=== PATIENT | male | born 1945 | race Caucasian/White ===

== ENCOUNTER 2019-07-27 14:45 | Inpatient (IN) | payer MEDICARE, BC ==
[2019-07-27] MEDS ORDERED: Sodium Chloride 0.9% 1,000 ML IV ONE (14:54)
[2019-07-27] MEDS: Sodium Chloride 0.9% 10 ML Syringe FLUSH PRN ×2 (15:00→20:38)
--- NOTE | 2019-07-27 15:01 | EDM.PDOC ---
ED HPI GENERAL MEDICAL PROBLEM - General Chief Complaint: General Stated Complaint: GENERALIZED WEAKNESS Time Seen by Provider: 07/27/19 14:45 Source of Information: Reports: Patient, EMS - History of Present Illness INITIAL COMMENTS - FREE TEXT/NARRATIVE: 74 YO WM presents to ER with complaints of progressive weakness over the last month. Pt woke this am and attempted to get his phone and fell due to weakness. Pt denies slurred speech, confusion, headache or recent head injury. Pt denies chest pain, shortness of breath or recent illnesses. Pt states he hasn't seen a doctor in over 20 years. Pt states his mouth feels very dry. Pt denies alcohol use/abuse, no recreational drug use, not taking any prescription medications and states he likes to smoke cigars daily. Pt is alert and oriented x 4, GCS- 15. No pronator drift, no facial droop and no slurred speech on initial exam. Pt able to move all extremities without difficulty and purposely. Onset: Today, Gradual Duration: Getting Worse Location: Reports: Generalized Severity: Moderate Improves with: Reports: None Worsens with: Reports: None Associated Symptoms: Reports: Loss of Appetite, Malaise, Weakness. Denies: Confusion, Chest Pain, Cough, cough w sputum, Diaphoresis, Nausea/Vomiting, Rash , Seizure, Shortness of Breath, Syncope - Related Data Allergies Allergy/AdvReac Type Severity Reaction Status Date / Time No Known Drug Allergies Allergy Other Verified 07/27/19 15:06 Home Meds: Home Meds Aspirin [Halfprin] 81 mg PO DAILY 07/27/19 [History] ED ROS GENERAL - Review of Systems Review Of Systems: See Below Constitutional: Reports: No Symptoms, Malaise, Weakness, Fatigue HEENT: Reports: No Symptoms Respiratory: Reports: No Symptoms Cardiovascular: Reports: No Symptoms Endocrine: Reports: No Symptoms GI/Abdominal: Reports: No Symptoms : Reports: No Symptoms Musculoskeletal: Reports: No Symptoms Skin: Reports: No Symptoms Neurological: Reports: No Symptoms, Difficulty Walking, Weakness. Denies: Confusion, Dizziness, Headache, Trouble Speaking, Change in Speech Psychiatric: Reports: No Symptoms Hematologic/Lymphatic: Reports: No Symptoms Immunologic: Reports: No Symptoms ED EXAM, GENERAL - Physical Exam Exam: See Below Exam Limited By: No Limitations General Appearance: Alert, WD/WN, No Apparent Distress Eye Exam: Bilateral Eye: EOMI, PERRL Throat/Mouth: Normal Inspection, Normal Lips, Normal Teeth, Normal Gums, Normal Oropharynx, Normal Voice, No Airway Compromise Head: Atraumatic, Normocephalic Neck: Normal Inspection, Supple, Non-Tender, Full Range of Motion Respiratory/Chest: No Respiratory Distress, Lungs Clear, Normal Breath Sounds, No Accessory Muscle Use, Chest Non-Tender Cardiovascular: Normal Peripheral Pulses, Regular Rate, Rhythm, No Edema, No Gallop, No JVD, No Murmur, No Rub GI/Abdominal: Normal Bowel Sounds, Soft, Non-Tender, No Organomegaly, No Distention, No Abnormal Bruit, No Mass Back Exam: Normal Inspection, Full Range of Motion, NT Extremities: Normal Inspection, Normal Range of Motion, Non-Tender, Normal Capillary Refill, No Pedal Edema Neurological: Alert, Oriented, CN II-XII Intact, Normal Cognition, Normal Gait, Normal Reflexes, No Motor/Sensory Deficits Psychiatric: Normal Affect, Normal Mood Skin Exam: Warm, Dry, Intact, Normal Color, No Rash Lymphatic: No Adenopathy EKG INTERPRETATION EKG Date: 07/27/19 Time: 14:58 Rhythm: NSR Rate (Beats/Min): 64 [place]: Normal P-Wave: Present QRS: Normal ST-T: Normal QT: Normal Comparison: NA - No Prior EKG Course - Vital Signs Last Recorded V/S: Last Vital Signs Temp 36.7 C 07/27/19 16:21 Pulse 71 07/27/19 16:21 Resp 16 07/27/19 16:21 BP 225/69 H 07/27/19 16:21 Pulse Ox 95 07/27/19 16:21 - Orders/Labs/Meds Orders: Active Orders 24 hr Category Date Time Status Cardiac Monitoring [RC] . DIRECTED Care 07/27/19 14:55 Active EKG Documentation Completion [RC] ASDIRECTED Care 07/27/19 14:55 Active Peripheral IV Care [RC] . DIRECTED Care 07/27/19 14:55 Active UA W/MICROSCOPIC [URIN] Stat Lab 07/27/19 14:54 Ordered Sodium Chloride 0.9% [Saline Flush] Med 07/27/19 14:54 Active 10 ml FLUSH Q8HR PRN Peripheral IV Insertion Adult [OM.PC] Routine Oth 07/27/19 14:54 Ordered EKG 12 Lead [EK] Routine Ther 07/27/19 14:54 Ordered Medication Orders Sodium Chloride (Saline Flush) 10 ml FLUSH Q8HR PRN PRN Reason: keep vein open Last Admin: 07/27/19 15:00 Dose: 10 ml Labs: Laboratory Tests 07/27/19 07/27/19 Range/Units 14:55 14:55 WBC 9.10 (5.00-10.00) 10^3/uL RBC 4.48 L (4.50-6.00) 10^6/uL Hgb 15.9 (13.0-17.0) g/dL Hct 44.1 (40.0-52.0) % MCV 98.4 H (82.0-92.0) fL MCH 35.5 H (27.0-31.0) pg MCHC 36.1 H (32.0-36.0) g/dL RDW 12.6 (11.5-14.5) % Plt Count 189 (150-400) 10^3/uL MPV 9.6 (7.4-10.4) fL Immature Gran % (Auto) 0.2 (0.0-5.0) % Neut % (Auto) 85.1 H (50.0-70.0) % Lymph % (Auto) 8.5 L (20.0-40.0) % [place] % (Auto) 5.8 (2.0-8.0) % Eos % (Auto) 0.1 L (1.0-3.0) % Baso % (Auto) 0.3 (0.0-1.0) % Immature Gran # (Auto) 0.02 (0.00-0.50) 10^3/uL Neut # (Auto) 7.74 H (2.50-7.00) 10^3/uL Lymph # (Auto) 0.77 L (1.00-4.00) 10^3/uL [place] # (Auto) 0.53 (0.10-0.80) 10^3/uL Eos # (Auto) 0.01 L (0.10-0.30) 10^3/uL Baso # (Auto) 0.03 (0.00-0.10) 10^3/uL Sodium 139 (136-145) mmol/L Potassium 3.9 (3.3-5.3) mmol/L Chloride 105 (98-115) mmol/L Carbon Dioxide 21.9 (21.0-32.0) mmol/L Anion Gap 16.0 H (5-15) mmol/L BUN 19 (6-25) mg/dL Creatinine 1.47 H (0.51-1.17) mg/dL Est Cr Clr Drug Dosing 34.29 mL/min Estimated GFR (MDRD) 47 mL/min Glucose 125 H (75 - 99) mg/dL Calcium 9.1 (8.7-10.3) mg/dL Total Bilirubin 0.7 (0.2-1.0) mg/dL AST 26 (15-37) U/L ALT 21 (12-78) U/L Alkaline Phosphatase 86 (46-116) IU/L Creatine Kinase 375 H* (26-276) U/L CK-MB (CK-2) 4.80 H* (0.00-4.30) ng/mL Troponin I 0.08 H* (0.00-0.070) ng/mL Total Protein 7.3 (6.4-8.2) g/dL Albumin 3.46 (3.00-4.80) g/dL Meds: Medications Generic Name Dose Route Start Last Admin Trade Name Freq PRN Reason Stop Dose Admin Sodium Chloride 10 ml 07/27/19 14:54 07/27/19 15:00 Saline Flush FLUSH 10 ml Q8HR PRN Administration keep vein open Discontinued Medications Generic Name Dose Route Start Last Admin Trade Name Freq PRN Reason Stop Dose Admin Aspirin 324 mg 07/27/19 15:59 07/27/19 16:06 Aspirin PO 07/27/19 16:00 324 mg ONETIME ONE Administration Sodium Chloride 1,000 mls @ 999 mls/hr 07/27/19 14:54 07/27/19 15:00 Normal Saline IV 07/27/19 15:54 999 mls/hr .BOLUS ONE Administration Nitroglycerin 1 gm 07/27/19 15:59 07/27/19 16:07 Nitro-Bid 2% TOP 07/27/19 16:00 1 gm ONETIME ONE Administration - Radiology Interpretation Free Text/Narrative:: CT head- NAD CXR- NAD Departure - Departure Time of Disposition: 16:27 Disposition: Refer to Observation Condition: Fair Clinical Impression: Elevated troponin I level, Weakness, Dehydration - Discharge Information Referrals: PCP,Not In Area [Primary Care Provider] - Forms: ED Department Discharge - My Orders Last 24 Hours: My Active Orders 07/27/19 14:54 UA W/MICROSCOPIC [URIN] Stat Sodium Chloride 0.9% [Saline Flush] 10 ml FLUSH Q8HR PRN Peripheral IV Insertion Adult [OM.PC] Routine EKG 12 Lead [EK] Routine 07/27/19 14:55 Cardiac Monitoring [RC] . DIRECTED EKG Documentation Completion [RC] ASDIRECTED Peripheral IV Care [RC] . DIRECTED - Assessment/Plan Last 24 Hours: My Active Orders 07/27/19 14:54 UA W/MICROSCOPIC [URIN] Stat Sodium Chloride 0.9% [Saline Flush] 10 ml FLUSH Q8HR PRN Peripheral IV Insertion Adult [OM.PC] Routine EKG 12 Lead [EK] Routine 07/27/19 14:55 Cardiac Monitoring [RC] . DIRECTED EKG Documentation Completion [RC] ASDIRECTED Peripheral IV Care [RC] . DIRECTED Assessment:: 1. progressive weakness 2. dehydration 3. elevated trop I Plan: 1. admit to medicine- [facility] 2. serial trop I 3. IVF hydration 4. supportive care
--- NOTE | 2019-07-27 15:36 | CR ---
[id number] RAD/RAD Chest PA or AP 1V EXAM: FRONTAL CHEST INDICATION: Weakness. COMPARISON: None. DISCUSSION: Linear opacities in both lung bases likely represent subsegmental atelectasis or scarring, but could obscure other underlying pathology. No definite infiltrates. Borderline heart size without evidence of edema. IMPRESSION: 1. No acute findings. Mike Crawford MD 07/27/19 4430 Thank you for allowing us to participate in the care of your patient.
--- NOTE | 2019-07-27 15:40 | CT ---
[id number] CT/CT Head Stroke Protocol EXAM: NONCONTRAST HEAD CT INDICATION: Weakness and stroke protocol. COMPARISON: None. DISCUSSION: 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 and possible right midbrain lacunar infarcts. There is a prominent perivascular space in the lower right basal ganglia. Mild to moderate chronic small vessel ischemic changes. No hydrocephalus. No acute hemorrhage, midline shift or apparent territorial infarct. The orbits and paranasal sinuses are unremarkable. IMPRESSION: 1. No acute findings. Mike Crawford MD 07/27/19 4739 Thank you for allowing us to participate in the care of your patient.
[2019-07-27] MEDS ORDERED: Aspirin 81 MG Tab.Chew PO ONE (15:59)
[2019-07-27] MEDS ORDERED: Nitroglycerin 2% Oint 1 GM UD Packet TOP ONE (15:59)
[2019-07-27] MEDS ORDERED: Dextrose 5%-0.45% NaCl 1,000 ML IV SCH (18:15)
[2019-07-27] MEDS ORDERED: Labetalol 100 MG/20 ML MDV IVPUSH ONE (18:37)
[2019-07-27] MEDS ORDERED: Labetalol 100 MG/20 ML MDV IVPUSH PRN (19:12)
[2019-07-27] MEDS: Sodium Chloride 0.9% 1,000 ML IV SCH (19:22)
--- NOTE | 2019-07-27 20:57 | PCM.HP.2 ---
H&P History of Present Illness - General Date of Service: 07/27/19 Admit Problem/Dx: Admission Diagnosis/Problem Admission Diagnosis/Problem Weakness Source of Information: Patient, Family, Provider History Limitations: Reports: No Limitations - Related Data Allergies/Adverse Reactions: Allergies Allergy/AdvReac Type Severity Reaction Status Date / Time No Known Drug Allergies Allergy Other Verified 07/27/19 15:06 Home Medications: Home Meds Aspirin [Halfprin] 81 mg PO DAILY 07/27/19 [History] Past Medical History - Past Health History Medical/Surgical History: Denies Medical/Surgical History Social & Family History - Family History Cardiac: Reports: None Neurological: Denies: CVA, Parkinson's Oncologic: Reports: Breast (mother) - Tobacco Use Smoking Status *Q: Current Every Day Smoker Years of Tobacco use: 5 Packs/Tins Daily: 1 - Caffeine Use Caffeine Use: Reports: Coffee - Recreational Drug Use Recreational Drug Use: No H&P Review of Systems - Review of Systems: Review Of Systems: See Below General: Reports: Weakness, Fatigue, Decreased Appetite. Denies: Fever, Chills HEENT: Reports: Other (trouble swallowing liquid and food in the last few days) . Denies: Headaches, Sinus Congestion, Sore Throat, Vertigo, Visual Changes Pulmonary: Denies: Shortness of Breath, Cough Cardiovascular: Reports: Lightheadedness. Denies: Chest Pain, Edema, Syncope Gastrointestinal: Reports: Constipation, Decreased Appetite, Other (reports he had an umbilical hernia, but feels that resolved; has had chronic protrusion of abdomen lately). Denies: Abdominal Pain, Diarrhea, Nausea, Vomiting Genitourinary: Reports: No Symptoms Musculoskeletal: Reports: No Symptoms Skin: Reports: No Symptoms Psychiatric: Denies: Confusion Neurological: Reports: Dizziness, Numbness (of left side of mouth in past couple days, but has resolved), Trouble Speaking (words are mumbled), Difficulty Walking (swaying to the left), Weakness, Change in Speech, Gait Disturbance. Denies: Confusion, Headache, Seizure, Syncope Exam - Exam Exam: See Below - Vital Signs Vital Signs: Last Vital Signs Temp 98.8 F 07/27/19 18:35 Pulse 59 L 07/27/19 20:38 Resp 16 07/27/19 18:35 BP 165/69 H 07/27/19 20:38 Pulse Ox 94 L 07/27/19 18:35 Weight: 120 lb 6.4 oz - Exam Quality Assessment: DVT Prophylaxis (Score 3). No: Supplemental Oxygen General: Alert, Oriented (x4), Cooperative, Other (No acute distress) HEENT: Conjunctiva Clear, EOMI, Hearing Intact, Posterior Pharynx Clear, PERRLA. No: Mucosa Moist & [place] (pink and dry), TMs Clear (unable to fully visualize due to cerumen) Lungs: Clear to Auscultation, Normal Respiratory Effort Cardiovascular: Regular Rate, Regular Rhythm, Normal S1, Normal S2 GI/Abdominal Exam: Non-Tender, Distended (moderate), Abnormal Bowel Sounds ( hypoactive bowel sounds x 4), Other (rounded abdomen with moderate sized protrusion/mass midline) Extremities: No Pedal Edema Skin: Warm, Dry, Intact Neurological: Cranial Nerves Intact, Strength Equal Bilateral (5/5 to BUE and BLE), Sensation Intact, Other (no pronator drift; leans towards left with upper body). No: Normal Speech (mumbled, but still understandable) Neuro Extensive - Mental Status: Alert, Oriented x3, Normal Mood/Affect, Normal Cognition, Memory Intact Neuro Extensive - Motor, Sensory, Reflexes: CN II-XII Intact. No: Tongue Deviation (L), Tongue Deviation (R), Expressive Aphasia, Facial palsy (L), Facial Palsy (R), Hemeplagia (R), Hemeplagia (L), Pronator Drift (R), Pronator Drift (L) Psychiatric: Alert, Normal Affect, Normal Mood - Patient Data Lab Results Last 24 hrs: Laboratory Results - last 24 hr 07/27/19 07/27/19 07/27/19 Range/Units 14:55 14:55 14:55 WBC 9.10 (5.00-10.00) 10^3/uL RBC 4.48 L (4.50-6.00) 10^6/uL Hgb 15.9 (13.0-17.0) g/dL Hct 44.1 (40.0-52.0) % MCV 98.4 H (82.0-92.0) fL MCH 35.5 H (27.0-31.0) pg MCHC 36.1 H (32.0-36.0) g/dL RDW 12.6 (11.5-14.5) % Plt Count 189 (150-400) 10^3/uL MPV 9.6 (7.4-10.4) fL Immature Gran % (Auto) 0.2 (0.0-5.0) % Neut % (Auto) 85.1 H (50.0-70.0) % Lymph % (Auto) 8.5 L (20.0-40.0) % [place] % (Auto) 5.8 (2.0-8.0) % Eos % (Auto) 0.1 L (1.0-3.0) % Baso % (Auto) 0.3 (0.0-1.0) % Immature Gran # (Auto) 0.02 (0.00-0.50) 10^3/uL Neut # (Auto) 7.74 H (2.50-7.00) 10^3/uL Lymph # (Auto) 0.77 L (1.00-4.00) 10^3/uL [place] # (Auto) 0.53 (0.10-0.80) 10^3/uL Eos # (Auto) 0.01 L (0.10-0.30) 10^3/uL Baso # (Auto) 0.03 (0.00-0.10) 10^3/uL ESR 4 (0-15) mm/hr Sodium 139 (136-145) mmol/L Potassium 3.9 (3.3-5.3) mmol/L Chloride 105 (98-115) mmol/L Carbon Dioxide 21.9 (21.0-32.0) mmol/L Anion Gap 16.0 H (5-15) mmol/L BUN 19 (6-25) mg/dL Creatinine 1.47 H (0.51-1.17) mg/dL Est Cr Clr Drug Dosing 34.29 mL/min Estimated GFR (MDRD) 47 mL/min Glucose 125 H (75 - 99) mg/dL Calcium 9.1 (8.7-10.3) mg/dL Total Bilirubin 0.7 (0.2-1.0) mg/dL AST 26 (15-37) U/L ALT 21 (12-78) U/L Alkaline Phosphatase 86 (46-116) IU/L Creatine Kinase 375 H* (26-276) U/L CK-MB (CK-2) 4.80 H* (0.00-4.30) ng/mL Troponin I 0.08 H* (0.00-0.070) ng/mL C-Reactive Protein (0.0-0.9) mg/dL Total Protein 7.3 (6.4-8.2) g/dL Albumin 3.46 (3.00-4.80) g/dL 07/27/19 Range/Units 14:55 WBC (5.00-10.00) 10^3/uL RBC (4.50-6.00) 10^6/uL Hgb (13.0-17.0) g/dL Hct (40.0-52.0) % MCV (82.0-92.0) fL MCH (27.0-31.0) pg MCHC (32.0-36.0) g/dL RDW (11.5-14.5) % Plt Count (150-400) 10^3/uL MPV (7.4-10.4) fL Immature Gran % (Auto) (0.0-5.0) % Neut % (Auto) (50.0-70.0) % Lymph % (Auto) (20.0-40.0) % [place] % (Auto) (2.0-8.0) % Eos % (Auto) (1.0-3.0) % Baso % (Auto) (0.0-1.0) % Immature Gran # (Auto) (0.00-0.50) 10^3/uL Neut # (Auto) (2.50-7.00) 10^3/uL Lymph # (Auto) (1.00-4.00) 10^3/uL [place] # (Auto) (0.10-0.80) 10^3/uL Eos # (Auto) (0.10-0.30) 10^3/uL Baso # (Auto) (0.00-0.10) 10^3/uL ESR (0-15) mm/hr Sodium (136-145) mmol/L Potassium (3.3-5.3) mmol/L Chloride (98-115) mmol/L Carbon Dioxide (21.0-32.0) mmol/L Anion Gap (5-15) mmol/L BUN (6-25) mg/dL Creatinine (0.51-1.17) mg/dL Est Cr Clr Drug Dosing mL/min Estimated GFR (MDRD) mL/min Glucose (75 - 99) mg/dL Calcium (8.7-10.3) mg/dL Total Bilirubin (0.2-1.0) mg/dL AST (15-37) U/L ALT (12-78) U/L Alkaline Phosphatase (46-116) IU/L Creatine Kinase (26-276) U/L CK-MB (CK-2) (0.00-4.30) ng/mL Troponin I (0.00-0.070) ng/mL C-Reactive Protein 0.4 (0.0-0.9) mg/dL Total Protein (6.4-8.2) g/dL Albumin (3.00-4.80) g/dL Result Diagrams: 07/27/19 14:55 07/27/19 14:55 EKG INTERPRETATION EKG Date: 07/27/19 Time: 14:58 Rhythm: NSR Rate (Beats/Min): 64 [place]: Normal P-Wave: Present QRS: Normal ST-T: Depressed (in lateral leads) QT: Normal Comparison: NA - No Prior EKG Problem List Initiated/Reviewed/Updated: Yes Orders Last 24hrs: Active Orders 24 hr Category Date Time Status Patient Status [ADT] Routine ADT 07/27/19 18:02 Active Cardiac Monitoring [RC] 0300,0700,1100,1500,1900,2300 Care 07/27/19 14:55 Active Communication Order [RC] 0900,2100,0300 Care 07/27/19 19:37 Active Height and Weight [RC] DAILY Care 07/27/19 18:02 Active Intake and Output [RC] QSHIFT Care 07/27/19 18:03 Active Neuro Check [RC] 1900,2100,2300,0100,0300,0500,0700, Care 07/27/19 18:13 Active 0900,1100 Nursing Bedside Swallow Screen [RC] ASDIRECTED Care 07/27/19 17:09 Active Oxygen Therapy [RC] PRN Care 07/27/19 18:02 Active Peripheral IV Care [RC] 0900,2100 Care 07/27/19 14:55 Active Up With Assistance [RC] ASDIRECTED Care 07/27/19 18:02 Active VTE/DVT Education [RC] PER UNIT ROUTINE Care 07/27/19 18:02 Active Vital Signs [RC] 0300,0700,1100,1500,1900,2300 Care 07/27/19 18:02 Active Consult to Physical Therapy [PT Evaluation and Cons 07/27/19 18:48 Active Treatment] [CONS] Routine Consult to Speech Language Pathology [BLOCKING MACHINE OPERATOR Evaluation Cons 07/27/19 18:08 Active and Treatment] [CONS] Routine NPO [Nothing Per Oral Diet] [DIET] Diet 07/27/19 Dinner Active BASIC METABOLIC PANEL,BMP [CHEM] AM Lab 07/28/19 05:11 Ordered CBC WITH AUTO DIFF [HEME] AM Lab 07/28/19 05:11 Ordered TROPONIN I [CHEM] AM Lab 07/28/19 05:11 Ordered TROPONIN I [CHEM] Timed Lab 07/27/19 19:55 Received UA W/MICROSCOPIC [URIN] Stat Lab 07/27/19 14:54 Ordered Aspirin [Ecotrin] Med 07/28/19 09:00 Active 325 mg PO DAILY Labetalol [Normodyne] Med 07/27/19 20:49 Ordered 10 mg IVPUSH ASDIRECTED PRN Sodium Chloride 0.9% [Normal Saline] 1,000 ml Med 07/27/19 18:45 Active IV ASDIRECTED Sodium Chloride 0.9% [Saline Flush] Med 07/27/19 14:54 Active 10 ml FLUSH Q8HR PRN Peripheral IV Insertion Adult [OM.PC] Routine Oth 07/27/19 14:54 Ordered Resuscitation Status Routine Resus Stat 07/27/19 18:02 Ordered EKG 12 Lead [EK] Routine Ther 07/27/19 14:54 Stop Req Medication Orders Aspirin (Ecotrin) 325 mg PO DAILY JONATHAN Sodium Chloride (Normal Saline) 1,000 mls @ 125 mls/hr IV ASDIRECTED JONATHAN Last Admin: 07/27/19 19:22 Dose: 125 mls/hr Sodium Chloride (Saline Flush) 10 ml FLUSH Q8HR PRN PRN Reason: keep vein open Last Admin: 07/27/19 20:38 Dose: 10 ml Admin: 07/27/19 15:00 Dose: 10 ml Assessment/Plan Comment:: HPI: This is a 74 yo male who presented to the ED due to progressive weakness over the last month. Patient reports he has been off balance and fell today while trying to reach his phone. Patient's and daughter report that he has had trouble swallowing liquids and food the past few days along with leaning towards the left when he is trying to walk. They have also noticed that his speech is mumbled, but not slurred. Patient has not seen a medical provider in over 20 years. He takes a baby aspirin daily. No alcohol/drug use. Is a cigar smoker at 5 per day. Pertinent ED work-up: WBC 9.1 with left shift Hgb 15.9 with elevated MCV & MCH with normal RDW Creatinine 1.47. Troponin 0.08 CK-MB 4.80 CK 375 CXR-no acute findings CT head-impression revealed no acute findings EKG-NSR with T wave inversion in lateral leads Primary Assessment/Plan: 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 & possible right midbrain lacunar infarcts. Neuro exam not revealing any acute deficits, however does have leaning to the left, dysphagia, and mumbled speech. Upon further review of ED work-up, narrative of CT head revealed this diagnosis which is fitting with clinical picture. Neuro checks every 2 hours x 8 hours, then every 4 hours. Was given full strength ASA in ER for NSTEMI and will continue this once speech eval occurs. Failed nurse led beside waldemar wooten and is now NPO. Speech therapist to come tomorrow morning. PT evaluation. He will need MRI brain on when available. Hypertensive urgency. Upon arrival to the floor, he was given IV labetalol 20 mg IV x 1 with a PRN order for labetalol 10 mg IV q10 min for BP 165/110 or greater. Will continue this and determine oral regimen in the AM. NSTEMI, likely type 2. Repeat troponin 0.09. Continue telemetry. Serial troponins. DC nitropaste. Clinical dehydration and now NPO d/t dysphagia. Continue IVF of NS at 125 mL/ hr. Progressive weakness related to subacute right CVA. Secondary Assessment/Plan: Mass of abdomen. Obtain CT abd/pelvis in AM for further evaluation. Cigar smoker. DVT prophylaxis. Hold off on lovenox until neuro checks have been stable. Overall plan: Continue IVFs and IV labetalol. NPO. CT abd/pelvis in the AM. Hold ASA until after speech eval. Speech and PT eval in AM. Discussed current state with patient and his family. Patient elects to be a full code. Discussed with them that if he would show any signs of an acute stroke he would be transferred to the stroke center in [place]. Patient agrees. - Mortality Measure Prognosis:: Poor
[2019-07-27] MEDS: Labetalol 100 MG/20 ML MDV IVPUSH PRN (23:10)
[2019-07-28] MEDS: Labetalol 100 MG/20 ML MDV IVPUSH PRN ×7 (00:11→09:22)
[2019-07-28] MEDS: Sodium Chloride 0.9% 1,000 ML IV SCH ×2 (03:29→12:38)
[2019-07-28] MEDS ORDERED: Iopamidol 755 Mg/ML 100 ML Bottle IV ONE (08:07)
[2019-07-28 08:11] LABS: ANION GAP 20.6 mmol/L (5-15)
[2019-07-28] MEDS ORDERED: Sodium Chloride 0.9% 50 ML IV SCH (08:15)
[2019-07-28] MEDS ORDERED: Aspirin 325 MG Tab.EC PO SCH (09:00)
[2019-07-28] MEDS ORDERED: Aspirin 81 MG Tab.EC PO SCH (09:00)
--- NOTE | 2019-07-28 09:23 | CT ---
[id number] CT/CT Abdomen Pelvis W IV EXAM: ABDOMEN AND PELVIS CT WITH CONTRAST INDICATION: Massive abdomen. COMPARISON: None. DISCUSSION: There is marked distention of the urinary bladder with severe associated bilateral urinary collecting system dilation. In the inferior bladder there is an exophytic 35mm enhancing mass which could represent a urothelial or prostate malignancy. Cystoscopy is suggested for further evaluation. There are few posterior inferior bladder wall diverticula. Small bilateral pleural effusions. Bibasilar atelectasis. Mild cardiomegaly. Atherosclerotic plaque is seen throughout the aorta and its major branches. 4.8 cm infrarenal abdominal aortic aneurysm. The liver, gallbladder, spleen, pancreas, adrenal glands, small bowel and large bowel are normal in appearance. No adenopathy, free air or significant free fluid is identified. Degenerative changes in the spine. Grade 1 L3-L4 spondylolisthesis. IMPRESSION: 1. Marked distention of the urinary bladder with associated severe bilateral hydroureteronephrosis. 2. 35 mm exophytic mass in the inferior bladder that could be either a urothelial or prostate malignancy. 3. Small bilateral pleural effusions. 4. 4.8 cm infrarenal abdominal aortic aneurysm. Mike Crawford MD 07/28/19 0921 Thank you for allowing us to participate in the care of your patient.
[2019-07-28] MEDS: hydrALAZINE 20 MG/ML SDV IVPUSH PRN ×2 (10:01→11:08)
[2019-07-28] MEDS ORDERED: hydrALAZINE 20 MG/ML SDV IVPUSH PRN (11:43)
[2019-07-28] MEDS ORDERED: Lidocaine 2% 100 MG/5 ML Syringe IVPUSH PRN (14:10)
[2019-07-28] MEDS ORDERED: EPINEPHrine 1:10,000 1 MG/10 ML Syringe IVPUSH PRN (14:10)
[2019-07-28] MEDS ORDERED: Atropine 0.1 MG/ML 10 ML Syringe IVPUSH PRN (14:10)
[2019-07-28] MEDS: Nitroglycerin 0.4 MG Tab.SL SL PRN ×2 (14:13→15:01)
[2019-07-28] MEDS ORDERED: Morphine 2 MG/ML Syringe IVPUSH PRN (15:06)
[2019-07-28] MEDS ORDERED: Nitroprusside 50 MG in Dextrose 5% in Water 248 ML IV SCH ×2 (15:45)
--- NOTE | 2019-07-28 16:56 | PCM.DCSUM1 ---
Discharge Summary - Discharge Data Discharge Date: 07/28/19 Discharge Disposition: DC/Tfer to Acute Hospital 02 Condition: Critical - Referral to Home Health Primary Care Physician: Patito Barone MD - Patient Summary/Data Consults: Consultations 07/27/19 18:08 Consult to Speech Language Pathology [DIRECTOR OF RETAIL MERCHANDISING Evaluation and Treatment] [CONS] Routine 07/27/19 18:48 Consult to Physical Therapy [PT Evaluation and Treatment] [CONS] Routine 07/28/19 08:14 Consult to Case Management/Operator Receptionist [CONS] Routine - Discharge Plan Home Medications: Home Meds RX: Aspirin [Halfprin] 81 mg PO DAILY 07/27/19 [History] Forms: ED Department Discharge Referrals: PCP,Not In Area [Ordering Only Provider] - - Discharge Summary/Plan Comment DC Time >30 min.: Yes Discharge Summary/Plan Comment: Date of admission: 07/27/19 Date of discharge: 07/28/19 Admitting diagnosis: Primary: 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 & possible right midbrain lacunar infarcts; Hypertensive urgency; NSTEMI, likely type 2; Clinical dehydration, Progressive weakness related to subacute stroke, Dysphagia Secondary: Mass of abdomen, Cigar smoker Final diagnosis: Primary: NSTEMI, Marked urinary bladder distention with severe bilateral hydroureteronephrosis-post obstructive; 35 mm exophytic mass in inferior bladder ; 4.6 cm infrarenal abdominal aortic aneurysm; 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 & possible right midbrain lacunar infarcts; Hypertensive urgency; Clinical dehydration, Progressive weakness related to subacute stroke, Dysphagia. Secondary: Cigar smoker Procedures performed: None Brief History: This is a 74 yo male who presented to the ED due to progressive weakness over the last month. Patient reports he has been off balance and fell yesterday while trying to reach his phone. Patient's and daughter report that he has had trouble swallowing liquids and food the past few days along with leaning towards the left when he is trying to walk. They have also noticed that his speech is mumbled, but not slurred. Patient has not seen a medical provider in over 20 years. He takes a baby aspirin daily. No alcohol/drug use. Is a cigar smoker at 5 per day. Pertinent ED work-up: WBC 9.1 with left shift Hgb 15.9 with elevated MCV & MCH with normal RDW Creatinine 1.47. Troponin 0.08 CK-MB 4.80 CK 375 CXR-no acute findings CT head-impression revealed no acute findings EKG-NSR with T wave inversion in lateral leads Hospital Course: The patient's hospital course was complicated by a NSTEMI necessitating transfer to acute care hospital. After accepting patient to medical-surgical floor last evening, it was noted that in the narrative of the CT head report there was a subacute to chronic right thalamic & possible right midbrain lacunar infarcts. This was fitting with patient's mumbled speech, dysphagia, and leaning to the left. Neuro exam revealed no acute deficits and he was monitored throughout his stay without acute changes. He was also noted to be very hypertensive upon admission for which he required several doses of IV labetolol and IV hydralazine to achieve a SBP of less than 160. Patient appeared clinically dehydrated on admission so was given IVFs. He failed his nurse led bedside swallow study, so was kept NPO. Speech therapy in to evaluate him on day of transfer for which it was recommended he have pudding thick liquids and a video swallow be obtained. PT was consulted for evaluation. No OT evaluation available. Patient noted a mass to his abdomen that had been present for some time. CT abd/pelvis was obtained which noted "Marked distention of the urinary bladder with associated severe bilateral hydroureteronephrosis. 35 mm exophytic mass in the inferior bladder that could be either a urothelial or prostate malignancy. Small bilateral pleural effusions. 4.8 cm infrarenal abdominal aortic aneurysm." Patient had farris catheter placed. Patient developed chest pain around 1400 today (07/28/19). Troponins had trended down to normal this morning with reading of 0.05, 0.07. Repeat level obtained at symptom onset which was 0.08 with a BNP of 1900. IVFs were stopped. EKG obtained which noted NSR at 69 bpm with marked t wave inversion in lateral leads V4-6 when compared to initial EKG. He was placed on oxygen. He was given 2 sublingual nitroglycerin without improvement in pain. He was given morphine 2 mg IV without improvement in pain. He was then initiated on a nitroglycerin drip shortly before transfer. Consulted with financial administrative assistant, Dr. Wilde, regarding patient's condition. He agreed with nitroglycerin drip, but advised holding off on anticoagulation given subacute stroke and recommended consultation with neurology. Consulted with hospitalist, Dr. James, regarding patient's critical condition and he was accepted for admission at [facility]. Patient with and daughters at bedside and updated with recent findings and plan of care. Discharge Labs: Creatinine 1.65 ESR 4 CRP 0.4 Na 147 K 3.8 Troponin 0.08 WBC 6.1 with left shift Hgb 12.8 New medications at discharge: None Changes to home medications at discharge: -ASA 325 mg po daily (holding) Regular home medications on discharge: None Condition, Treatment, & Final Disposition: The patient is in critical, but stable condition at the time of transfer. He will be transferred to [facility] via ALS ambulance. - General Info Date of Service: 07/28/19 Functional Status: Reports: Urinating (farris catheter ). Denies: Pain Controlled, Tolerating Diet, Ambulating - Review of Systems General: Reports: Weakness, Fatigue, Malaise. Denies: Fever, Chills HEENT: Reports: Glasses, Other (dysphagia). Denies: Headaches Pulmonary: Denies: Shortness of Breath, Cough Cardiovascular: Reports: Chest Pain. Denies: Palpitations, Edema, Lightheadedness Gastrointestinal: Reports: Difficulty Swallowing. Denies: Abdominal Pain, Constipation, Diarrhea, Nausea, Vomiting Genitourinary: Reports: Retention. Denies: Dysuria Musculoskeletal: Reports: Arm Pain (left arm) Neurological: Reports: Numbness (left side of jaw), Trouble Speaking (mumbled), Difficulty Walking, Weakness, Gait Disturbance. Denies: Confusion, Dizziness, Headache Psychiatric: Reports: No Symptoms - Patient Data Vitals - Most Recent: Last Vital Signs Temp 97.8 F 07/28/19 16:26 Pulse 73 07/28/19 16:26 Resp 20 07/28/19 16:26 BP 171/73 H 07/28/19 16:26 Pulse Ox 93 L 07/28/19 16:26 Weight - Most Recent: 122 lb 6 oz I&O - Last 24 hours: Intake & Output 07/28/19 07/28/19 07/28/19 06:59 14:59 22:59 Intake Total 1031 785 Output Total 200 200 Balance 831 585 Lab Results - Last 24 hrs: Laboratory Results - last 24 hr 11/17/19 11/17/19 11/17/19 Range/Units 14:55 14:55 19:55 WBC (5.00-10.00) 10^3/uL RBC (4.50-6.00) 10^6/uL Hgb (13.0-17.0) g/dL Hct (40.0-52.0) % MCV (82.0-92.0) fL MCH (27.0-31.0) pg MCHC (32.0-36.0) g/dL RDW (11.5-14.5) % Plt Count (150-400) 10^3/uL MPV (7.4-10.4) fL Immature Gran % (Auto) (0.0-5.0) % Neut % (Auto) (50.0-70.0) % Lymph % (Auto) (20.0-40.0) % [place] % (Auto) (2.0-8.0) % Eos % (Auto) (1.0-3.0) % Baso % (Auto) (0.0-1.0) % Immature Gran # (Auto) (0.00-0.50) 10^3/uL Neut # (Auto) (2.50-7.00) 10^3/uL Lymph # (Auto) (1.00-4.00) 10^3/uL [place] # (Auto) (0.10-0.80) 10^3/uL Eos # (Auto) (0.10-0.30) 10^3/uL Baso # (Auto) (0.00-0.10) 10^3/uL ESR 4 (0-15) mm/hr Sodium (136-145) mmol/L Potassium (3.3-5.3) mmol/L Chloride (98-115) mmol/L Carbon Dioxide (21.0-32.0) mmol/L Anion Gap (5-15) mmol/L BUN (6-25) mg/dL Creatinine (0.51-1.17) mg/dL Est Cr Clr Drug Dosing mL/min Estimated GFR (MDRD) mL/min Glucose (75 - 99) mg/dL Calcium (8.7-10.3) mg/dL Troponin I 0.09 H* (0.00-0.070) ng/mL C-Reactive Protein 0.4 (0.0-0.9) mg/dL B-Natriuretic Peptide (0-100) pg/mL Specimen Type Urine Color (YELLOW) Urine Appearance (CLEAR) Urine pH (5.0-9.0) Ur Specific [place] (1.005-1.030) Urine Protein (NEGATIVE) mg/dL Urine Glucose (UA) (NEGATIVE) mg/dL Urine Ketones (NEGATIVE) mg/dL Urine Occult Blood (NEGATIVE) Urine Nitrite (NEGATIVE) Urine Bilirubin (NEGATIVE) Urine Urobilinogen (0.2-1.0) E.U./dL Ur Leukocyte Esterase (NEGATIVE) Urine RBC (0-5) /HPF Urine WBC (0-5) /HPF Ur Epithelial Cells /LPF Urine Bacteria (NONE TO FEW) /HPF 07/27/19 07/28/19 07/28/19 Range/Units 21:48 03:20 07:20 WBC 6.08 (5.00-10.00) 10^3/uL RBC 3.60 L (4.50-6.00) 10^6/uL Hgb 12.8 L D (13.0-17.0) g/dL Hct 36.3 L (40.0-52.0) % MCV 100.8 H (82.0-92.0) fL MCH 35.6 H (27.0-31.0) pg MCHC 35.3 (32.0-36.0) g/dL RDW 12.8 (11.5-14.5) % Plt Count 159 (150-400) 10^3/uL MPV 10.0 (7.4-10.4) fL Immature Gran % (Auto) 0.3 (0.0-5.0) % Neut % (Auto) 77.2 H (50.0-70.0) % Lymph % (Auto) 13.8 L (20.0-40.0) % [place] % (Auto) 8.1 H (2.0-8.0) % Eos % (Auto) 0.3 L (1.0-3.0) % Baso % (Auto) 0.3 (0.0-1.0) % Immature Gran # (Auto) 0.02 (0.00-0.50) 10^3/uL Neut # (Auto) 4.69 (2.50-7.00) 10^3/uL Lymph # (Auto) 0.84 L (1.00-4.00) 10^3/uL [place] # (Auto) 0.49 (0.10-0.80) 10^3/uL Eos # (Auto) 0.02 L (0.10-0.30) 10^3/uL Baso # (Auto) 0.02 (0.00-0.10) 10^3/uL ESR (0-15) mm/hr Sodium (136-145) mmol/L Potassium (3.3-5.3) mmol/L Chloride (98-115) mmol/L Carbon Dioxide (21.0-32.0) mmol/L Anion Gap (5-15) mmol/L BUN (6-25) mg/dL Creatinine (0.51-1.17) mg/dL Est Cr Clr Drug Dosing mL/min Estimated GFR (MDRD) mL/min Glucose (75 - 99) mg/dL Calcium (8.7-10.3) mg/dL Troponin I 0.05 (0.00-0.070) ng/mL C-Reactive Protein (0.0-0.9) mg/dL B-Natriuretic Peptide (0-100) pg/mL Specimen Type Urinvoid Urine Color Yellow (YELLOW) Urine Appearance Clear (CLEAR) Urine pH 6.5 (5.0-9.0) Ur Specific [place] 1.015 (1.005-1.030) Urine Protein 100 H (NEGATIVE) mg/dL Urine Glucose (UA) Negative (NEGATIVE) mg/dL Urine Ketones Negative (NEGATIVE) mg/dL Urine Occult Blood Negative (NEGATIVE) Urine Nitrite Negative (NEGATIVE) Urine Bilirubin Negative (NEGATIVE) Urine Urobilinogen 0.2 (0.2-1.0) E.U./dL Ur Leukocyte Esterase Negative (NEGATIVE) Urine RBC 0-5 (0-5) /HPF Urine WBC 0-5 (0-5) /HPF Ur Epithelial Cells Occasional /LPF Urine Bacteria Rare (NONE TO FEW) /HPF 07/28/19 07/28/19 Range/Units 07:20 14:20 WBC (5.00-10.00) 10^3/uL RBC (4.50-6.00) 10^6/uL Hgb (13.0-17.0) g/dL Hct (40.0-52.0) % MCV (82.0-92.0) fL MCH (27.0-31.0) pg MCHC (32.0-36.0) g/dL RDW (11.5-14.5) % Plt Count (150-400) 10^3/uL MPV (7.4-10.4) fL Immature Gran % (Auto) (0.0-5.0) % Neut % (Auto) (50.0-70.0) % Lymph % (Auto) (20.0-40.0) % [place] % (Auto) (2.0-8.0) % Eos % (Auto) (1.0-3.0) % Baso % (Auto) (0.0-1.0) % Immature Gran # (Auto) (0.00-0.50) 10^3/uL Neut # (Auto) (2.50-7.00) 10^3/uL Lymph # (Auto) (1.00-4.00) 10^3/uL [place] # (Auto) (0.10-0.80) 10^3/uL Eos # (Auto) (0.10-0.30) 10^3/uL Baso # (Auto) (0.00-0.10) 10^3/uL ESR (0-15) mm/hr Sodium 147 H (136-145) mmol/L Potassium 3.8 (3.3-5.3) mmol/L Chloride 110 (98-115) mmol/L Carbon Dioxide 20.2 L (21.0-32.0) mmol/L Anion Gap 20.6 H (5-15) mmol/L BUN 19 (6-25) mg/dL Creatinine 1.65 H (0.51-1.17) mg/dL Est Cr Clr Drug Dosing 29.90 mL/min Estimated GFR (MDRD) 41 mL/min Glucose 92 (75 - 99) mg/dL Calcium 8.2 L (8.7-10.3) mg/dL Troponin I 0.07 0.08 H* (0.00-0.070) ng/mL C-Reactive Protein (0.0-0.9) mg/dL B-Natriuretic Peptide 1900 H (0-100) pg/mL Specimen Type Urine Color (YELLOW) Urine Appearance (CLEAR) Urine pH (5.0-9.0) Ur Specific [place] (1.005-1.030) Urine Protein (NEGATIVE) mg/dL Urine Glucose (UA) (NEGATIVE) mg/dL Urine Ketones (NEGATIVE) mg/dL Urine Occult Blood (NEGATIVE) Urine Nitrite (NEGATIVE) Urine Bilirubin (NEGATIVE) Urine Urobilinogen (0.2-1.0) E.U./dL Ur Leukocyte Esterase (NEGATIVE) Urine RBC (0-5) /HPF Urine WBC (0-5) /HPF Ur Epithelial Cells /LPF Urine Bacteria (NONE TO FEW) /HPF Med Orders - Current: Current Medications Atropine Sulfate (Atropine 0.1 Mg/Ml) 0 mg IVPUSH ASDIRECTED PRN PRN Reason: Heart Epinephrine HCl (Epinephrine 1:10,000) 1 mg IVPUSH ASDIRECTED PRN PRN Reason: Heart Hydralazine HCl (Apresoline) 20 mg IVPUSH Q2H PRN PRN Reason: Hypertension Last Admin: 07/28/19 13:13 Dose: 20 mg Sodium Chloride (Normal Saline) 50 mls @ 200 mls/min IV ASDIRECTED JONATHAN Last Admin: 07/28/19 08:56 Dose: 200 mls/min Nitroglycerin/Dextrose (Nitroglycerin 50 Mg/D5w 250 Ml) 50 mg in 250 mls @ 3 mls/hr IV TITRATE JONATHAN; Protocol Last Admin: 07/28/19 16:06 Dose: 10 mcg/min, 3 mls/hr Lidocaine HCl (Xylocaine 2%) 0 mg IVPUSH ASDIRECTED PRN PRN Reason: Heart Morphine Sulfate (Morphine) 2 mg IVPUSH Q1H PRN PRN Reason: Chest Pain Nitroglycerin (Nitrostat) 0.4 mg SL ASDIRECTED PRN PRN Reason: Heart Last Admin: 07/28/19 15:01 Dose: 0.4 mg Sodium Chloride (Saline Flush) 10 ml FLUSH Q8HR PRN PRN Reason: keep vein open Last Admin: 07/27/19 20:38 Dose: 10 ml Discontinued Medications Aspirin (Aspirin) 324 mg PO ONETIME ONE Stop: 07/27/19 16:00 Last Admin: 07/27/19 16:06 Dose: 324 mg Aspirin (Halfprin) 81 mg PO DAILY [facility] Aspirin (Ecotrin) 325 mg PO DAILY [facility] Hydralazine HCl (Apresoline) 10 mg IVPUSH Q2H PRN PRN Reason: Hypertension Last Admin: 07/28/19 11:08 Dose: 10 mg Sodium Chloride (Normal Saline) 1,000 mls @ 999 mls/hr IV .BOLUS ONE Stop: 07/27/19 15:54 Last Admin: 07/27/19 15:00 Dose: 999 mls/hr Dextrose/Sodium Chloride (Dextrose 5%-1/2 Ns) 1,000 mls @ 100 mls/hr IV ASDIRECTED [facility] Last Admin: 07/27/19 18:32 Dose: 100 mls/hr Sodium Chloride (Normal Saline) 1,000 mls @ 125 mls/hr IV ASDIRECTED [facility] Last Admin: 07/28/19 12:38 Dose: 125 mls/hr Iopamidol (Isovue-370 (76%)) 100 ml IV ONETIME ONE Stop: 07/28/19 08:08 Last Admin: 07/28/19 08:55 Dose: 75 ml Labetalol HCl (Normodyne) 20 mg IVPUSH ONETIME ONE; Protocol Stop: 07/27/19 18:38 Last Admin: 07/27/19 19:23 Dose: 20 mg Labetalol HCl (Normodyne) 10 mg IVPUSH Q1H PRN PRN Reason: Hypertension Last Admin: 07/27/19 20:33 Dose: 10 mg Labetalol HCl (Normodyne) 10 mg IVPUSH ASDIRECTED PRN PRN Reason: Hypertension Last Admin: 07/28/19 09:22 Dose: 10 mg Nitroglycerin (Nitro-Bid 2%) 1 gm TOP ONETIME ONE Stop: 07/27/19 16:00 Last Admin: 07/27/19 16:07 Dose: 1 gm - Exam Quality Assessment: Reports: Supplemental Oxygen (2 lpm), Urine Catheter (farris) . Denies: DVT Prophylaxis (none d/t subacute stroke) General: Reports: Alert, Oriented (x4), Cooperative, No Acute Distress HEENT: Reports: Pupils Equal, Pupils Reactive, EOMI Neck: Reports: Supple Lungs: Reports: Clear to Auscultation, Normal Respiratory Effort Cardiovascular: Reports: Regular Rate, Regular Rhythm, No Murmurs GI/Abdominal Exam: Non-Tender, Distended (moderate), Abnormal Bowel Sounds ( hypoactive x 4), Mass (midline) Extremities: No Pedal Edema Skin: Reports: Warm, Dry, Intact Neurological: Reports: No New Focal Deficit, Strength Equal Bilateral, Sensation Intact, Cranial Nerves Intact. Denies: Normal Speech (mumbled) Psy/Mental Status: Reports: Alert, Normal Affect, Normal Mood EKG INTERPRETATION EKG Date: 07/28/19 Time: 14:13 Rhythm: NSR Rate (Beats/Min): 69 [place]: Normal P-Wave: Present QRS: Normal ST-T: Depressed (significantly in leads V4-6) QT: Prolonged Comparison: Change From Previous EKG (increased lateral t wave inversion)
== END 2019-07-28 16:40 | DRG 64 ==
LOC: KA.ED 14:45 → UNDOADMOB 16:28 → KA.MS 16:28 → INTOOBSV 18:02 → OBSVTOIN 18:02 → KA.MS 20:48 → UNDODISIN 07-28 16:40
PROVIDERS: ADMIT Physician Assistant Medical; ATTEND Nurse Practitioner Family
DX: I63.9 Cerebral infarction, unspecified (principal); R79.89 Other specified abnormal findings of blood chemistry; R53.1 Weakness; W19.XXXA Unspecified fall, initial encounter; F17.290 Nicotine dependence, other tobacco product, uncomplicated; R63.0 Anorexia; R53.81 Other malaise; I21.A1 Myocardial infarction type 2; N13.30 Unspecified hydronephrosis; J90 Pleural effusion, not elsewhere classified; R40.2412 Glasgow coma scale score 13-15, at arrival to emergency department; I16.0 Hypertensive urgency; E86.0 Dehydration; F17.210 Nicotine dependence, cigarettes, uncomplicated; I71.4 Abdominal aortic aneurysm, without rupture; N32.89 Other specified disorders of bladder; Z79.82 Long term (current) use of aspirin
CPT/HCPCS: 70450; 71045; 80053; 82550; 82553; 84484; 85025; 85651; 86140; 93005; A9270 ×2; J7030; 36415; 74177; 80048; 81001; 83880; 92526-GN; 92610-GN; 96360; 99283; 99285-25; J0360; J3490; J7042; J7050; Q9967

== ENCOUNTER 2019-09-21 10:30 | Emergency (ER) | payer MEDICARE, BC ==
--- NOTE | 2019-09-21 11:23 | EDM.PDOC ---
ED HPI GENERAL MEDICAL PROBLEM - General Chief Complaint: General Stated Complaint: BROWN EMESIS Time Seen by Provider: 09/21/19 11:05 Source of Information: Reports: Family (), Long-Term Records, Provider History Limitations: Reports: Altered Mental Status - History of Present Illness INITIAL COMMENTS - FREE TEXT/NARRATIVE: Patient presents with hypoxemia, gurgling respirations, decreased mental status and frothy sputum. He has been at [facility] for 6 days and before that at [facility] following a STEMI and stroke July 27 and . MD suspects aspiration of emesis today. He has also had GI bleeding from the colon first diagnosed on 09/02/19. Recent baseline hemoglobins have been about 8.0. He had been a long-time smoker up until the stroke and DC in July. - Related Data Allergies Allergy/AdvReac Type Severity Reaction Status Date / Time No Known Drug Allergies Allergy Other Verified 09/21/19 11:32 Home Meds: Home Meds Acetaminophen [Non-Aspirin] 650 mg PEGTUBE Q4H PRN 09/21/19 [History] Aspirin 81 mg PEGTUBE DAILY@1000 09/21/19 [History] Bisacodyl [Laxative Suppository] 10 mg RC DAILY PRN 09/21/19 [History] Carvedilol [Coreg] 3.125 mg PEGTUBE BID 09/21/19 [History] Doxazosin Mesylate [Cardura] 8 mg PEGTUBE DAILY 09/21/19 [History] Finasteride [Proscar] 5 mg PO DAILY 09/21/19 [History] Lisinopril [Zestril] 40 mg PEGTUBE DAILY@1000 09/21/19 [History] Nicotine [Nicotine Patch] 21 mg TD DAILY 09/21/19 [History] Ticagrelor [Brilinta] 90 mg PEGTUBE BID 09/21/19 [History] Wheat Dextrin [Benefiber] 1 each PEGTUBE TID 09/21/19 [History] Wheat Dextrin [Benefiber] 1 each PEGTUBE TID PRN 09/21/19 [History] atorvaSTATin Calcium [Atorvastatin Calcium] 40 mg PEGTUBE BEDTIME 09/21/19 [ History] Past Medical History - Past Health History Medical/Surgical History: Denies Medical/Surgical History Social & Family History - Family History Family Medical History: Noncontributory Cardiac: Reports: None Oncologic: Reports: Breast (mother) - Caffeine Use Caffeine Use: Reports: Coffee ED ROS GENERAL - Review of Systems Review Of Systems: See Below (very limited due to unresponsive status) Constitutional: Denies: Fever Respiratory: Reports: Shortness of Breath GI/Abdominal: Reports: Vomiting (per [place]) Neurological: Reports: Trouble Speaking (before today he was visiting some with his she says) ED EXAM, GENERAL - Physical Exam Exam: See Below Exam Limited By: Altered Mental Status General Appearance: Obtunded, Thin Ears: Normal External Exam Nose: Normal Inspection, No Blood Throat/Mouth: Normal Inspection, Normal Lips Head: Atraumatic, Normocephalic Neck: Normal Inspection, Non-Tender Respiratory/Chest: Crackles (throughout bilat), Rhonchi Cardiovascular: Normal Peripheral Pulses, Regular Rate, Rhythm Peripheral Pulses: 2+: Carotid (L), Carotid (R), Radial (L), Radial (R) GI/Abdominal: Soft, Non-Tender Extremities: No Pedal Edema Neurological: Other (very limited response; no verbal) Skin Exam: Warm, Dry, Intact, Normal Color, No Rash Course - Vital Signs Last Recorded V/S: Last Vital Signs Temp 98.6 F 09/21/19 11:09 Pulse 70 09/21/19 11:09 Resp 25 H 09/21/19 11:09 BP 111/42 L 09/21/19 11:09 Pulse Ox 56 L 09/21/19 11:09 - Orders/Labs/Meds Orders: Active Orders 24 hr Category Date Time Status CULTURE BLOOD [BC] Stat Lab 09/21/19 11:16 Ordered CULTURE BLOOD [BC] Stat Lab 09/21/19 11:16 Ordered Sodium Chloride 0.9% @ 999 MLS/HR (1000ml) Med 09/21/19 12:08 Ordered Sodium Chloride 0.9% [Normal Saline] 1,000 ml IV .BOLUS Vancomycin 1 gm Med 09/21/19 12:00 Ordered Sodium Chloride 0.9% [Normal Saline] 250 ml IV ONETIME Blood Culture x2 Reflex Set [OM.PC] Stat Oth 09/21/19 11:14 Ordered Medication Orders Vancomycin HCl 1 gm/ Sodium (Chloride) 250 mls @ 167 mls/hr IV ONETIME ONE Stop: 09/21/19 13:29 Sodium Chloride (Normal Saline) 1,000 mls @ 999 mls/hr IV .BOLUS ONE Stop: 09/21/19 13:08 Last Admin: 09/21/19 12:19 Dose: 999 mls/hr Labs: Laboratory Tests 09/21/19 09/21/19 09/21/19 Range/Units 10:50 10:50 10:50 WBC 6.74 (5.00-10.00) 10^3/uL RBC 2.64 L (4.50-6.00) 10^6/uL Hgb 9.1 L D (13.0-17.0) g/dL Hct 27.4 L (40.0-52.0) % MCV 103.8 H D (82.0-92.0) fL MCH 34.5 H (27.0-31.0) pg MCHC 33.2 (32.0-36.0) g/dL RDW 17.1 H (11.5-14.5) % Plt Count 188 (150-400) 10^3/uL MPV 10.1 (7.4-10.4) fL Immature Gran % (Auto) 0.1 (0.0-5.0) % Neut % (Auto) 80.5 H (50.0-70.0) % Lymph % (Auto) 7.7 L (20.0-40.0) % [place] % (Auto) 11.0 H (2.0-8.0) % Eos % (Auto) 0.3 L (1.0-3.0) % Baso % (Auto) 0.4 (0.0-1.0) % Immature Gran # (Auto) 0.01 (0.00-0.50) 10^3/uL Neut # (Auto) 5.42 (2.50-7.00) 10^3/uL Lymph # (Auto) 0.52 L (1.00-4.00) 10^3/uL [place] # (Auto) 0.74 (0.10-0.80) 10^3/uL Eos # (Auto) 0.02 L (0.10-0.30) 10^3/uL Baso # (Auto) 0.03 (0.00-0.10) 10^3/uL Sodium 122 L D (136-145) mmol/L Potassium 6.0 H D (3.3-5.3) mmol/L Chloride 91 L D (98-115) mmol/L Carbon Dioxide 30.3 D (21.0-32.0) mmol/L Anion Gap 6.7 (5-15) mmol/L BUN 41 H (6-25) mg/dL Creatinine 0.91 (0.51-1.17) mg/dL Est Cr Clr Drug Dosing 55.38 mL/min Estimated GFR (MDRD) > 60 mL/min Glucose 142 H (75 - 99) mg/dL Lactic Acid 0.6 (0.4-2.0) mmol/L Calcium 7.2 L (8.7-10.3) mg/dL Total Bilirubin 0.5 (0.2-1.0) mg/dL AST 30 (15-37) U/L ALT 44 (12-78) U/L Alkaline Phosphatase 101 (46-116) IU/L Total Protein 5.1 L (6.4-8.2) g/dL Albumin 2.06 L (3.00-4.80) g/dL Meds: Medications Generic Name Dose Route Start Last Admin Trade Name Freq PRN Reason Stop Dose Admin Vancomycin HCl 1 gm/ Sodium 250 mls @ 167 mls/hr 09/21/19 12:00 Chloride IV 09/21/19 13:29 ONETIME ONE Sodium Chloride 1,000 mls @ 999 mls/hr 09/21/19 12:08 09/21/19 12:19 Normal Saline IV 09/21/19 13:08 999 mls/hr .BOLUS ONE Administration Discontinued Medications Generic Name Dose Route Start Last Admin Trade Name Freq PRN Reason Stop Dose Admin Cefepime HCl 2 gm 09/21/19 12:00 09/21/19 12:19 Maxipime IVPUSH 09/21/19 12:01 2 gm ONETIME ONE Administration - Re-Assessments/Exams Free Text/Narrative Re-Assessment/Exam: 09/21/19 12:19 WBC is 6.7, Hg is 9.1 which is good compared to recent baseline. CXR shows extensive infiltrate in right lung and small infiltrate in left with small effusions in each. Discussed findings with . She says the most recent decision by patient was to be full code and she isn't quite ready to change that. She discussed with his brother and they would like to go to [facility]. Discussed this also with Dr. Gracia and we agree with decision to transfer to [place]. We have started antibiotics Cefepime and Vanco and are giving fluid. Discussed case with Dr. Gilman, hospitalist at [facility] who accepted for transfer. RT is here suctioning oral secretions to try to decrease risk of further aspiration. Departure - Departure Time of Disposition: 12:32 Disposition: DC/Tfer to Acute Hospital 02 Condition: Poor Clinical Impression: Bilateral pulmonary infiltrates on chest x-ray, Hypoxemia, Mental status, decreased, Hyponatremia, Hyperkalemia, Recent myocardial infarction, History of recent stroke - Discharge Information Referrals: Patito Barone MD [Primary Care Provider] - Forms: ED Department Discharge, Interfacility Transfer EMTALA Sepsis Event Note - Evaluation Sepsis Screening Result: No Definite Risk - Focused Exam Vital Signs: Vital Signs Temp Pulse Resp BP Pulse Ox 09/21/19 11:09 98.6 F 70 25 H 111/42 L 56 L Date Exam was Performed: 09/21/19 Time Exam was Performed: 12:32 - My Orders Last 24 Hours: My Active Orders 09/21/19 11:14 Blood Culture x2 Reflex Set [OM.PC] Stat 09/21/19 11:16 CULTURE BLOOD [BC] Stat CULTURE BLOOD [BC] Stat 09/21/19 12:00 Vancomycin 1 gm Sodium Chloride 0.9% [Normal Saline] 250 ml IV ONETIME 09/21/19 12:08 Sodium Chloride 0.9% @ 999 MLS/HR (1000ml) Sodium Chloride 0.9% [Normal Saline] 1,000 ml IV .BOLUS - Assessment/Plan Last 24 Hours: My Active Orders 09/21/19 11:14 Blood Culture x2 Reflex Set [OM.PC] Stat 09/21/19 11:16 CULTURE BLOOD [BC] Stat CULTURE BLOOD [BC] Stat 09/21/19 12:00 Vancomycin 1 gm Sodium Chloride 0.9% [Normal Saline] 250 ml IV ONETIME 09/21/19 12:08 Sodium Chloride 0.9% @ 999 MLS/HR (1000ml) Sodium Chloride 0.9% [Normal Saline] 1,000 ml IV .BOLUS
--- NOTE | 2019-09-21 11:31 | CR ---
[id number] RAD/RAD Chest PA or AP 1V EXAM: SINGLE VIEW CHEST. INDICATION: SHORTNESS OF BREATH COMPARISON: CORRELATION IS MADE WITH THE EXAM OF JULY 27, 2019 FINDINGS: An extensive infiltrate is seen at the right right lung base with a moderate effusion A small infiltrate is seen at the left base with a small effusion The cardiomediastinal contour is stable The pacemaker is seen IMPRESSION: BIBASILAR RIGHT GREATER THAN LEFT PNEUMONIA WITH ASSOCIATED EFFUSIONS Joaquin Salazar MD 09/21/19 [id number] Thank you for allowing us to participate in the care of your patient.
[2019-09-21 11:35] LABS: ANION GAP 6.7 mmol/L (5-15); CHLORIDE,CL 91 mmol/L (98-115); SODIUM,NA 122 mmol/L (136-145)
[2019-09-21] MEDS ORDERED: Cefepime 2 GM Vial IVPUSH ONE (12:00)
[2019-09-21] MEDS ORDERED: Sodium Chloride 0.9% 1,000 ML IV ONE (12:08)
== END 2019-09-21 13:15 ==
LOC: KA.ED 10:30
DX: R09.02 Hypoxemia (principal); E87.1 Hypo-osmolality and hyponatremia; E87.5 Hyperkalemia; R91.8 Other nonspecific abnormal finding of lung field; I25.2 Old myocardial infarction; Z86.73 Personal history of transient ischemic attack (TIA), and cerebral infarction without residual deficits; Z79.82 Long term (current) use of aspirin; Z79.899 Other long term (current) drug therapy
CPT/HCPCS: 36415; 71045; 80053; 83605; 85025; 87040; 96365; 96375; 99284; 99285-25; J0692; J3370; J7030; J7050